=== PATIENT | female | born 1990 | race African-American/Black ===

== ENCOUNTER 2017-12-29 13:57 | Emergency (ER) | payer MEDICAID ==
[~2017-12-29] VITALS: Ht 154.9 cm; Wt 72.7 kg
[2017-12-29 14:01] VITALS: Ht 154.9 cm; Wt 72.7 kg
[2017-12-29] MEDS ORDERED: FLUTICASONE PRO16 GM NASAL (15:59)
[2017-12-29] MEDS ORDERED: AUGMENTIN 875-11 TAB PO (15:59)
[2017-12-29] MEDS ORDERED: PROVENTIL/2.5 MG/3 M INH (15:59)
[2017-12-29 16:24] VITALS: BP 137/91
== END 2017-12-29 16:16 | disposition home or self-care (01) ==
LOC: D.ER 13:57
DX: J01.90 Acute sinusitis, unspecified (principal); Z87.09 Personal history of other diseases of the respiratory system; R09.89 Other specified symptoms and signs involving the circulatory and respiratory systems; R51 Headache; J02.9 Acute pharyngitis, unspecified; I10 Essential (primary) hypertension